=== PATIENT | male | born 1980 | race Caucasian/White ===

== ENCOUNTER 2021-02-23 09:00 | Emergency (ER) | payer BC ==
[~2021-02-23] VITALS: Ht 177.8 cm; Wt 99.8 kg
[2021-02-23 09:11] VITALS: BP 135/89
[2021-02-23] MEDS ORDERED: LIDOCAINE /MPF 1% VIAL 5 ML VIAL ONE (09:22)
[2021-02-23] MEDS ORDERED: KETOROLAC TROMETHAMINE INJ 60 MG/2 ML VIAL IM ONE ×2 (09:22→09:30)
[2021-02-23] MEDS ORDERED: CEFTRIAXONE 1 G VIAL ONE (09:23)
[2021-02-23] MEDS ORDERED: CEFTRIAXONE 1 G VIAL IM ONE (09:30)
--- NOTE | 2021-02-23 09:50 | NUR ---
Patient discharged to home in stable condition. Written and verbal after care instructions given. Patient verbalizes understanding of instruction.
== END 2021-02-23 09:50 | disposition home or self-care (01) ==
LOC: ER 09:00
DX: K04.7 Periapical abscess without sinus (principal)
CPT/HCPCS: 96372 ×2; 99284; J0696; J1885; J3490